=== PATIENT | female | born 1980 | race Caucasian/White ===

== ENCOUNTER 2018-08-14 04:38 | Emergency (ER) | payer OTHER ==
[2018-08-14 04:57] LABS: ADD MAN DIFF? NO
[2018-08-14 05:01] LABS: WHITE BLOOD COUNT 6.9 10^3/ul (4.8-10.8)
[2018-08-14 05:01] LABS: BASOPHIL # 0.1 10^3/ul (0.0-0.1); BASOPHILS % 0.9 % (0.0-2.0); EOSINOPHILS # 0.3 10^3/ul (0.0-0.5); EOSINOPHILS % 4.6 % (0.0-7.0); HEMATOCRIT 32.3 % (37.0-47.0); HEMOGLOBIN 10.5 g/dl (12.0-16.0); LYMPHOCYTES # 2.4 10^3/ul (0.8-2.9); LYMPHOCYTES % 34.7 % (15.0-51.0); MEAN CORPUSCULAR HEMOGLOBIN 28.8 pg (29.0-33.0); MEAN CORPUSCULAR HGB CONC 32.5 g/dl (32.0-37.0); MEAN CORPUSCULAR VOLUME 88.7 fl (82.0-101.0); MEAN PLATELET VOLUME 10.7 fl (7.4-10.4); MONOCYTE # 0.4 10^3/ul (0.3-0.9); MONOCYTES % 6.2 % (0.0-11.0); NEUTROPHIL # 3.7 10^3/ul (1.6-7.5); PLATELET COUNT 220 10^3/UL (140-415); RED BLOOD COUNT 3.64 10^6/ul (4.20-5.40); RED CELL DISTRIBUTION WIDTH 13.2 % (11.5-14.5)
[2018-08-14] MEDS: SOD CHLORIDE 0.9% 1,000 ML IV (05:03)
[2018-08-14 05:33] LABS: ANION GAP 9 (5-13); BLOOD UREA NITROGEN 11 mg/dl (7-20); CALCIUM 8.8 mg/dl (8.4-10.2); CARBON DIOXIDE 28 mmol/L (21-31); CHLORIDE 104 mmol/L (97-110); CREATININE 0.54 mg/dl (0.44-1.00); Estimated GFR > 60 mL/min (>60); GLUCOSE 106 mg/dl (70-220); MAGNESIUM 1.7 mg/dl (1.7-2.5); SODIUM 141 mmol/L (135-144)
[2018-08-14 05:45] LABS: TROPONIN-I < 0.012 ng/ml (0.000-0.120)
[2018-08-14 05:50] LABS: FREE T4 (FREE THYROXINE) 1.12 ng/dl (0.79-2.35)
== END 2018-08-14 06:04 | disposition home or self-care (01) ==
LOC: E/R 04:38
DX: I47.1 Supraventricular tachycardia (principal); D64.9 Anemia, unspecified
CPT/HCPCS: 36415; 71045; 80048; 81025; 83735; 84439; 84443; 84484; 85025; 99285-25